=== PATIENT | female | born 1960 | race Caucasian/White ===

== ENCOUNTER → 2017-10-16 | Outpatient (CLI) | payer OTHER | END | disposition home or self-care (01) | LOC: LAB SHORT 07:58 → PLD 07:58 | DX: L72.9 Follicular cyst of the skin and subcutaneous tissue, unspecified (principal) | CPT/HCPCS: 88304 ==

== ENCOUNTER → 2019-02-20 | Outpatient (CLI) | payer OTHER ==
[~2019-02-20] MED LIST: ESCI10 PO; Estradiol1 MG PO; LEVO-T100 MCG PO; MEDR2.5 PO; Metoprolol Succ25 MG PO; Vitamin A and1 EACH; ZYRTEC10 M1 PO
[2019-02-22 15:07] LABS: HPV 16 Negative (Negative); HPV 18 Negative (Negative); HPV OTHER HR TYPES Negative (Negative)
== END | disposition home or self-care (01) ==
LOC: LAB 19:06 → LAB SHORT 19:06
PROVIDERS: Nurse Practitioner Women's Health
DX: Z12.4 Encounter for screening for malignant neoplasm of cervix (principal); Z91.89 Other specified personal risk factors, not elsewhere classified
CPT/HCPCS: 87624; G0123

== ENCOUNTER 2021-04-13 06:13 | Day surgery (SDC) | payer OTHER ==
[~2021-04-13] VITALS: Ht 162.6 cm; Wt 89.3 kg
[2021-04-13] MEDS ORDERED: CLEM1.34 (06:30)
[2021-04-13] MEDS ORDERED: ESTRADIOL1 EAC2 TOP (06:32)
--- NOTE | 2021-04-13 07:12 | NUR ---
History, Chart, Medications and Allergies reviewed before start of procedure. Lungs clear T/O to Auscultation. Patient confirms NPO status and agrees with scheduled surgery. Pre-Op teaching done. Pt verbalizes understanding. Patient reports completing Chlorhexadine shower X2 prior to admission to hospital.
--- NOTE | 2021-04-13 09:01 | NUR ---
04/13/21 0901 Nathalie Pete PATIENT LAST TOOK HER METOPROLOL 37.5MG @ 2100 ON 04/12. TAKES IT IN THE EVENING.
--- NOTE | 2021-04-13 12:15 | NUR ---
ASSUMED CARE: PT RETURNED FROM PACU. INCISIONS TO ABDOMEN NOTED WITH GLUE IN PLACE. PT LETHARGIC BUT RESPONSIVE. DAUGHTER AT BEDSIDE. LOOM CHECKER PERFORMING POST OP VITALS. NO AUCTE NEEDS AT THIS TIME.
--- NOTE | 2021-04-13 18:26 | NUR ---
SHIFT SUMMARY: PT PROVIDED WITH PAIN MEDS X1 THIS SHIFT. UP IN CHAIR EATING CLEAR LIQUIDS AND TOLERATING WELL. POSSIBLE DC TOMORROW. DAUGHTER WAS AT BEDSIDE POST OP. NO ACUTE NEEDS OR CONCERNS AT THIS TIME
--- NOTE | 2021-04-14 04:15 | NUR ---
PT IS ALERT AND ORIENTED X4. VERY PLEASANT. PERIPAD CLEAN. VOIDING. PX4 CDI WITH GLUE. TREATED PAIN ONCE DURING THIS SHIFT. SLEPT VERY LITTLE BUT PEACEFUL.
[2021-04-14 04:37] LABS: BASOPHILS ABSOLUTE AUTO 0.01 K/mm3 (0.00-0.23); BASOPHILS PERCENT AUTO 0 % (0-2); EOSINOPHILS PERCENT AUTO 0 % (0-6); Hematocrit 36.2 % (33.0-51.0); Hemoglobin 11.9 g/dL (11.5-16.0); IMMATURE GRAN ABSOLUTE AUTO 0.05 K/mm3 (0.00-0.10); IMMATURE GRAN PERCENT AUTO 0 % (0-1); LYMPHOCYTES ABSOLUTE AUTO 2.03 K/mm3 (0.84-5.20); LYMPHOCYTES PERCENT AUTO 16 % (21-46); MONOCYTES ABSOLUTE AUTO 0.74 K/mm3 (0.16-1.47); MONOCYTES PERCENT AUTO 6 % (4-13); Mean Corpuscular HGB 28.2 pg (26.0-34.0); Mean Corpuscular HGB Conc 32.9 g/dL (31.5-36.5); Mean Corpuscular Volume 86 fL (80-100); Mean Platelet Volume 11.8 fL (9.1-12.4); NEUTROPHILS ABSOLUTE AUTO 10.16 K/mm3 (1.96-9.15); NEUTROPHILS PERCENT AUTO 78 % (41-73); Platelet Count 228 K/mm3 (150-400); RDW Standard Deviation 40.6 fL (35.1-46.3); Red Blood Cell Count 4.22 M/mm3 (3.80-5.20); White Blood Cell Count 12.99 K/mm3 (4.00-11.30)
--- NOTE | 2021-04-14 15:02 | NUR ---
DISCHARGE NOTE: PATIENT AND DAUGHTER WERE EDUCATED ON DISCHARGE INSTRUCTIONS. BOTH OF THEM VERBALIZED UNDERSTANDING OF INSTRUCTIONS. BOTH IV'S WERE TAKEN OUT AND WERE WNL. PAIN IS MANAGED WITH PO PAIN MEDS. PATIENT ALREADY HAS HARD PERSCRIPTIONS AT HOME. THE 4 LAP SITES ON THE ABD ARE C/D/I WITH WOUND GLUE OVER THEM. SHE IS VOIDING AND TOLERATING PO INTAKE. SHE IS DRESSED AND HAS HER ITEMS GATHERED IN THE ROOM. PATIENT WILL BE WHEELCHAIRED OUT TO DAUGHTERS CAR TO BE TAKEN HOME.
[2021-04-14] MEDS ORDERED: IBUP400 PO (15:07)
[2021-04-14] MEDS ORDERED: DOCU100 PO (15:07)
[2021-04-14] MEDS ORDERED: DULCOLAX400 MG/5 M PO (15:08)
[2021-04-14] MEDS ORDERED: SENN187 PO (15:08)
[2021-04-14] MEDS ORDERED: Percocet 5-3251 EACH PO (15:08)
[2021-04-14] MEDS ORDERED: SIME80CH PO (15:09)
== END 2021-04-14 15:30 | disposition home or self-care (01) ==
LOC: ORSCMMR 06:13 → ORD 07:30 → SURS 11:44 → ORSCMMR 04-14 15:30
PROVIDERS: Obstetrics & Gynecology
PROC: 0UT24ZZ Resection of Bilateral Ovaries, Percutaneous Endoscopic Approach (ICD-10-PCS; principal; 2021-04-13 07:30)
PROC: 0UT74ZZ Resection of Bilateral Fallopian Tubes, Percutaneous Endoscopic Approach (ICD-10-PCS; principal; 2021-04-13 07:30)
PROC: 0UT94ZZ Resection of Uterus, Percutaneous Endoscopic Approach (ICD-10-PCS; principal; 2021-04-13 07:30)
PROC: 8E0W4CZ Robotic Assisted Procedure of Trunk Region, Percutaneous Endoscopic Approach (ICD-10-PCS; principal; 2021-04-13 07:30)
DX: N95.0 Postmenopausal bleeding (principal); D25.9 Leiomyoma of uterus, unspecified; D25.0 Submucous leiomyoma of uterus; N80.0 Endometriosis of uterus; K66.0 Peritoneal adhesions (postprocedural) (postinfection); N83.8 Other noninflammatory disorders of ovary, fallopian tube and broad ligament; I10 Essential (primary) hypertension; E03.9 Hypothyroidism, unspecified; Z79.899 Other long term (current) drug therapy; E66.9 Obesity, unspecified; Z68.33 Body mass index [BMI] 33.0-33.9, adult
CPT/HCPCS: 58571; S2900; 36415; 85025; 86850; 86900; 86901; 88307; 90686; A9270; J0690; J1100; J1885; J2250; J2370; J2405; J2704; J3010; J7120

== ENCOUNTER 2025-02-05 09:43 | Emergency (ER) | payer OTHER ==
[~2025-02-05] VITALS: Ht 162.6 cm; Wt 68.0 kg
[~2025-02-05 09:43] MED LIST changes: +CLEM1.34; +DOCU100 PO; +DULCOLAX400 MG/5 M PO; +ESTRADIOL1 EAC2 TOP; +IBUP400 PO; +Percocet 5-3251 EACH PO; +SENN187 PO; +SIME80CH PO
[2025-02-05] MEDS ORDERED: Morphine Sulfate 4 MG/1 ML Injection IV ONE (10:30)
[2025-02-05] MEDS ORDERED: HYDROmorphone HCl/Pf 1MG SYR IV PRN (13:10)
[2025-02-05 16:30] VITALS: BP 118/54
== END 2025-02-05 17:00 | disposition home or self-care (01) ==
LOC: ER 09:43
DX: G89.18 Other acute postprocedural pain (principal); M25.552 Pain in left hip; E03.9 Hypothyroidism, unspecified; Z96.642 Presence of left artificial hip joint; Z88.2 Allergy status to sulfonamides; Z79.890 Hormone replacement therapy; Z79.899 Other long term (current) drug therapy
CPT/HCPCS: 72192; 73502; 82947; 93005; 93010; 96374; 96375; 99284-25; A6590; J1171; J2270

== ENCOUNTER 2025-02-10 17:39 | Emergency (ER) | payer OTHER ==
[~2025-02-10] VITALS: Ht 162.6 cm; Wt 88.5 kg
[2025-02-10 18:04] LABS: BASOPHILS ABSOLUTE AUTO 0.05 K/mm3 (0.00-0.23); BASOPHILS PERCENT AUTO 1 % (0-2); EOSINOPHILS ABSOLUTE AUTO 0.09 K/mm3 (0.00-0.68); EOSINOPHILS PERCENT AUTO 1 % (0-6); Hematocrit 34.8 % (33.0-51.0); Hemoglobin 11.7 g/dL (11.5-16.0); IMMATURE GRAN ABSOLUTE AUTO 0.02 K/mm3 (0.00-0.10); IMMATURE GRAN PERCENT AUTO 0 % (0-1); LYMPHOCYTES ABSOLUTE AUTO 2.86 K/mm3 (0.84-5.20); LYMPHOCYTES PERCENT AUTO 36 % (21-46); MONOCYTES ABSOLUTE AUTO 0.53 K/mm3 (0.16-1.47); MONOCYTES PERCENT AUTO 7 % (4-13); Mean Corpuscular HGB Conc 33.6 g/dL (31.5-36.5); Mean Corpuscular Volume 86 fL (80-100); NEUTROPHILS ABSOLUTE AUTO 4.44 K/mm3 (1.96-9.15); NEUTROPHILS PERCENT AUTO 56 % (41-73); NRBC ABSOLUTE 0.00 K/mm3 (0.00-0.02); NRBC Auto 0.0 /100 WBC (0.0-0.2); Platelet Count 309 K/mm3 (150-400); RDW Coefficient Variation 13.4 % (11.7-14.2); RDW Standard Deviation 41.7 fL (35.1-46.3)
[2025-02-10 18:26] LABS: Alanine Aminotransfer (ALT/SGP 23.0 U/L (12-78); Albumin, Blood 3.9 g/dL (3.4-5.0); Albumin/Globulin Ratio 1.1 (0.8-1.8); Anion Gap 8.0 mmol/L (3-11); Aspartate Aminotrans (AST/SGOT 18.0 U/L (12-37); Bilirubin, Total 0.3 mg/dL (0.1-1.0); Blood Urea Nitrogen 19.0 mg/dL (8-24); CO2, Blood 24.0 mmol/L (21-32); Calcium, Blood 9.3 mg/dL (8.5-10.1); Chloride, Blood 109.0 mmol/L (98-108); Creatinine, Blood 0.87 mg/dL (0.40-1.00); Globulin, Blood 3.4 g/dL (2.2-4.0); Glucose, Blood 109.0 mg/dL (70-99); Potassium, Blood 3.6 mmol/L (3.5-5.5); Sodium, Blood 137.0 mmol/L (136-145); Total Protein, Blood 7.3 g/dL (6.4-8.2)
[2025-02-10 20:09] VITALS: BP 127/61
== END 2025-02-10 20:12 | disposition home or self-care (01) ==
LOC: ER 17:39
PROVIDERS: Student in an Organized Health Care Education/Training Program
DX: R07.89 Other chest pain (principal); Z88.2 Allergy status to sulfonamides; Z79.890 Hormone replacement therapy; Z79.899 Other long term (current) drug therapy
CPT/HCPCS: 71260; 80053; 83690; 84484; 85025; 93005; 93010; 99285-25; Q9967